=== PATIENT | male | born 1980 | race Caucasian/White ===

== ENCOUNTER 2022-09-25 03:09 | Emergency (ER) | payer OTHER, SELFPAY ==
[2022-09-25 03:10] VITALS: BP 165/98; PULSE 105; RESP 20; TEMP 37.1; O2SAT 94; BMI 38.5
--- NOTE | 2022-09-25 03:25 | EX.ED.DYSGE1 ---
HPI History of Present Illness Chief Complaint: Sore Throat Narrative Narrative: 41-year-old male here for sore throat. States this started yesterday. Notes constant, increasing pain. Endorses swelling in the right side of the neck. States symptoms are worse with swallowing. Denies any fever. Notes history of tonsillectomy. PFSH PFS Home Medications clindamycin HCl 300 mg capsule 300 mg PO TID 7 days #21 caps 09/25/22 [Rx Last Taken Unknown] Allergy/AdvReac Type Severity Reaction Status Date / Time Penicillins Allergy Anaphylaxis Verified 09/25/22 03:13 Sulfa (Sulfonamide Allergy Anaphylaxis Verified 09/25/22 03:13 Antibiotics) Surgical History (Updated 09/25/22 @ 03:14 by Toña Dudley) History of tonsillectomy and adenoidectomy Social History Smoking Status: Current every day smoker tobacco type: cigarettes ROS ROS ED ROS Narrative Constitutional: Denies fever HEENT: Endorses sore throat Neck: Denies neck pain Cardiovascular: Denies chest pain, syncope Respiratory: Denies shortness of breath GI: Denies nausea vomiting or abdominal pain : Denies changes in urinary habits Musculoskeletal: Denies muscle or joint pain Neurologic: Denies numbness weakness or loss of sensation Skin denies rash EXAM Physical Exam Narrative Exam Narrative: Nursing triage notes reviewed, Vital signs reviewed Constitutional: please see mdm HENT: MMM, mild erythema noted posterior oropharynx, tonsillectomy site without exudate. No submandibular edema, right-sided lymphadenopathy noted. Bilateral TMs pearly woods. Eyes: Pupils equal round and reactive to light, Extraocular muscles intact Neck: No stridor, no JVD, full neck ROM Lungs: Clear to auscultation, No wheezing or rales. No increased work of breathing, no conversational dyspnea, no accessory muscle use, no nasal flaring. No respiratory distress noted Heart: Regular rate and rhythm, No murmurs, No rubs and No gallops, 2+ distal pulses (radial, femoral, posterior tibial) Neuro: No focal neurological deficits, cranial nerves II through XII intact, 5/5 strength in all extremities. Intact sensation to light touch in all extremities, 2+ reflexes bilateral patella dens. Normal gait. No ataxia. Skin: No rash or lesions noted Const Vital Signs: 09/25/22 03:10 Temperature 98.7 F Temperature Source Oral Pulse Rate 105 H Respiratory Rate 20 H Blood Pressure 165/98 H Blood Pressure Mean 120 Pulse Ox 94 Oxygen Delivery Method Room Air MDM MDM MDM Narrative Medical decision making narrative: Chief Complaint: Sore throat External records reviewed: No recent ED visits or hospitalizations noted History of tonsillectomy MDM: Patient was hemodynamically stable, afebrile, nontoxic-appearing. He had good neck range of motion and no submandibular edema. There was right-sided lymphadenopathy noted. I considered the following differential diagnosis: RPA, [employer] [place], Ludewig's angina. Not consistent with RPA, [place] Ludewig's angina. Concern for lymphadenopathy and pharyngitis. Will give prophylactic antimicrobial therapy. Will instruct patient return if he develops any new or worsening symptoms specifically drooling, submental edema etc. gave clindamycin here. Feels prescriptions here in the ED via meds to beds. Factors affecting care: History of tonsillectomy Social determinants of health: Current everyday smoker History obtained from others: Shared decision making: I will have a discussion with the patient and or visitors regarding risk/benefits of further testing or admission. They will be made aware of of the risk/benefits inherent in this decision they will be given the opportunity to voice understanding. Consults: None Management Discussion w/another healthcare provider: Pharmacist Discharge Plan Triage Chief Complaint: Sore Throat ED Provider: César Perera Dx/Rx/DC Orders Clinical Impression: Pharyngitis, Lymphadenopathy Instructions: Pharyngitis or Tonsillitis Ch Prescriptions: New clindamycin HCl 300 mg capsule 300 mg PO TID 7 Days Qty: 21 0RF Primary Care Provider: Jovani Dotson Referrals: Jovani Dotson DO [Primary Care Provider] - Activity Restrictions/Additional Instructions: Thank you for trusting us with your care today! Please take antibiotics until course complete. Please return if the swelling in the right side of your neck) either throat, you are drooling you cannot swallow without antibiotics by mouth. Please take Tylenol (2 pills, 650 mg), ibuprofen (2 pills, 400 mg) every 6 hours as needed for pain and fever control. Please return to the emergency department if your symptoms change or worsen. Please follow with your primary care physician for further outpatient evaluation and management. Disposition Disposition: Home, Self Care
[2022-09-25] MEDS: Clindamycin HCl 150 MG Capsule 300 MG PO (03:53)
== END 2022-09-25 04:04 | disposition home or self-care (01) ==
LOC: ED 03:50
PROVIDERS: Emergency Provider Emergency Medicine; PCP Preventive Medicine Occupational Medicine; Visit Provider Emergency Medicine
DX: J02.9 Acute pharyngitis, unspecified (principal); F17.210 Nicotine dependence, cigarettes, uncomplicated; R59.9 Enlarged lymph nodes, unspecified
CPT/HCPCS: 99283

== ENCOUNTER 2023-01-08 10:37 | Emergency (ER) | payer OTHER, SELFPAY ==
[2023-01-08 10:38] VITALS: BP 151/103; PULSE 95; RESP 16; TEMP 36.4; O2SAT 97; BMI 39.1
--- NOTE | 2023-01-08 11:03 | CT_ITS ---
STUDY: CT ABDOMEN AND PELVIS WITHOUT CONTRAST REASON FOR EXAM: Male, 42 years old. Flank pain bilaterally RADIATION DOSAGE (If Supplied By Facility): CTDIvol = ( 23.63 ) mGy, DLP = ( 1399.27 ) mGycm TECHNIQUE: Transaxial images were obtained from the dome of the diaphragm to the symphysis pubis without oral contrast, and without intravenous contrast. Sagittal and coronal images were reconstructed. Individualized dose optimization techniques were used for this CT. COMPARISON: None. FINDINGS: Minimal bilateral basilar atelectasis. Mild coronary artery calcification. There is decreased attenuation of the liver consistent with steatosis. Normal gallbladder and extrahepatic biliary system. Normal spleen. Normal pancreas. Normal bilateral adrenal glands. Normal right kidney. Normal left kidney. Normal visualized stomach. Normal small intestine. There are scattered colonic diverticula consistent with diverticulosis. The appendix is visualized and appears normal. There is scattered atherosclerotic calcification of the abdominal aorta, without a demonstrated aneurysm. Normal inferior vena cava. Normal retroperitoneum. Normal urinary bladder. Central prostatic calcification. There is a left-sided inguinal hernia containing adipose tissue. There are degenerative changes of the visualized lumbar spine. CT/Abdomen/Pelvis without Cont IMPRESSION: Scattered sigmoid diverticulosis. Fatty infiltration of the liver. Electronically Signed: Brooks Bradley MD at 12:27 EDT ,
--- NOTE | 2023-01-08 11:05 | EDS_ITS ---
HPI <DANI Huddleston - Last Filed: 01/08/23 15:45> History of Present Illness Chief Complaint: Back Narrative Narrative: Patient presenting today with bilateral flank pain that he has had intermittently since 12/09/2022. He feels that today the pain worsened while he was at work this morning. The right-sided flank pain does radiate into the right groin. Nothing seems to worsen the pain and ibuprofen does seem to make it somewhat better. He saw a provider that was not his PCP shortly after the pain started and they obtained blood work as well as a UA and placed patient on Levaquin but he is unsure why they did that as they told him he did not have a UTI. Patient also reports intermittent bilateral testicular pain that is worse on the right side that he has had since his vasectomy in 2018. However, since December 09 the pain has worsened. He denies any fever, chills, abdominal pain, nausea, vomiting, urinary symptoms. Patient reports he has been having normal bowel movements. He denies any bowel/bladder incontinence, saddle paresthesia. PFSH <DANI Huddleston - Last Filed: 01/08/23 15:45> [facility] Medical History Hyperlipidemia Home Medications clindamycin HCl 300 mg capsule 300 mg PO TID 7 days #21 caps 09/25/22 [Rx Last Taken Unknown] doxycycline hyclate 100 mg tablet 100 mg PO BID #14 tabs 01/08/23 [Rx Last Taken Unknown] hydrocodone-acetaminophen 5-325mg 5mg-325mg 1 tab PO Q4H PRN PRN Pain 3 days #10 TABLETS 01/08/23 [Rx Last Taken Unknown] Allergy/AdvReac Type Severity Reaction Status Date / Time Penicillins Allergy Anaphylaxis Verified 01/08/23 10:38 Sulfa (Sulfonamide Allergy Anaphylaxis Verified 01/08/23 10:38 Antibiotics) Surgical History H/O: vasectomy History of tonsillectomy and adenoidectomy Social History Smoking Status: Current every day smoker tobacco type: cigarettes ROS <DANI Huddleston - Last Filed: 01/08/23 15:45> ROS ED Constitutional Constitutional ED: Denies chills or fever(s) Cardiovascular Cardiovascular: Denies chest pain or palpitations Respiratory/Chest Respiratory/Chest: Denies cough or dyspnea Gastrointestinal Gastrointestinal: Denies abdominal pain, constipation, diarrhea, nausea or vomiting Genitourinary Genitourinary ED: Denies dysuria, hematuria or urinary urgency Musculoskeletal Musculoskeletal: Reports back pain; Denies arthralgias or myalgias Integumentary Denies abscess, Abrasions or rash Neurologic Neurologic: Denies weakness Psychiatric Psychiatric: Denies anxiety or depression EXAM <DANI Huddleston - Last Filed: 01/08/23 15:45> Physical Exam Const Vital Signs: 01/08/23 12:38 01/08/23 14:00 Pulse Rate 80 77 Respiratory Rate 16 17 Blood Pressure 136/86 H 143/90 H Blood Pressure Mean 102 107 Pulse Ox 100 98 Oxygen Delivery Method Room Air Room Air Positive well nourished, well developed and no apparent distress General Appearance ED: well developed HEENT Reports normocephalic and head/scalp atraumatic Mouth ED: Yes moist mucous membranes normal Eyes PERRL and EOMs intact bilaterally Neck full ROM and supple Chest Wall inspection of chest normal Resp normal respiratory effort and clear to auscultation bilaterally Cardio regular rate and regular rhythm GI soft to palpation, non-tender, non-distended and no masses Narrative: Normal appearance to the scrotum without any swelling or erythema, mild right testicular pain to palpation Back/Spine normal ROM, normal to inspection and no thoracic nor lumbar tenderness General Back: CVA tenderness bilateral Thoracic Spine / Upper Back: normal to inspection and thoracic ROM normal; Negative for paraspinal muscle tenderness Lumbar Spine / Lower Back: normal to inspection and lumbar ROM normal; Negative for paraspinal muscle tenderness Extremity normal to inspection and full ROM Neuro oriented x3, CN's II-XII intact bilaterally, moves all extremities, no focal motor deficits and no sensory deficits noted Sensorium / Orientation: awake and alert Motor Exam: strength 5/5 throughout Psych mental status grossly normal and thought process normal Skin no rashes or lesions noted and no wounds <Dr. Yohana Fischer DO - Last Filed: 01/09/23 11:01> Physical Exam Const Vital Signs: 01/08/23 12:38 01/08/23 14:00 Pulse Rate 80 77 Respiratory Rate 16 17 Blood Pressure 136/86 H 143/90 H Blood Pressure Mean 102 107 Pulse Ox 100 98 Oxygen Delivery Method Room Air Room Air [facility] <DANI Huddleston - Last Filed: 01/08/23 15:45> [facility] Narrative Medical decision making narrative: Patient presenting today due to bilateral flank pain that he has had intermittently since 12/09 and testicular pain that is worse on the right side that he has had since having his vasectomy in 2019 that has acutely worsened since 12/09. He reports that today the pain was at its worst and the flank pain is worse on the right side and does radiate into the right testicle. He does appear uncomfortable, he will be given Toradol and morphine here for pain. Labs to be obtained to rule out leukocytosis, anemia, electrolyte abnormality, UTI, KETURAH. CT of the abdomen and pelvis will be obtained to rule out intra-abdominal etiology. EKG was added on as patient and his expressed concerns because patient has been sweating a lot more lately and his brother had a heart attack in his 40s. He is not having any chest pain or shortness of breath currently. CT is unremarkable for any acute findings, testicular ultrasound will be obtained. This shows a moderate-sized right hydrocele with increased vascula rity to the right epididymis. He will be given a referral for Dr. Arguelles, will be started on antibiotics, and will be given pain control. He will be discharged home in stable condition and is comfortable with plan. Lab Data Attestation: I reviewed the patient's lab results. Labs: Laboratory Results - last 24 hr 01/08/23 01/08/23 11:25 11:47 WBC 7.6 RBC 5.48 Hgb 16.6 H Hct 47.6 MCV 86.9 MCH 30.3 MCHC 34.9 RDW Std Deviation 42.6 RDW Coeff of Silverio 13.4 Plt Count 241 MPV 9.5 Immature Gran % (Auto) 0.400 Neut % (Auto) 53.3 Lymph % (Auto) 34.6 [place] % (Auto) 8.2 Eos % (Auto) 2.2 Baso % (Auto) 1.3 H Absolute Neuts (auto) 4.0 Absolute Lymphs (auto) 2.62 Nucleated RBC % 0 Sodium 138 Potassium 4.0 Chloride 106 Carbon Dioxide 26.0 Anion Gap 6 BUN 16 Creatinine 0.95 Estim Creat Clear Calc 123.09 Est GFR (MDRD) Af Amer 112 Est GFR (MDRD) Non-Af 92 BUN/Creatinine Ratio 16.9 Glucose 93 Calcium 9.3 Total Creatine Kinase 279 Urine Color Yellow Urine Clarity Clear Urine pH 6.0 Ur Specific [place] 1.020 Urine Protein 30 H Urine Glucose (UA) Normal Urine Ketones Negative Urine Occult Blood Negative Urine Nitrite Negative Urine Bilirubin Negative Urine Urobilinogen Normal Ur Leukocyte Esterase Negative Urine RBC 0 SEEN Urine WBC 0 SEEN Ur Squamous Epith Cells 0-5 SEEN Urine Bacteria 0 SEEN Urine Mucus 0 SEEN Radiography Diagnostic Testing: Clinical Impression(s) from Imaging Studies Abdomen/Pelvis CT 01/08/23 11:03 IMPRESSION: Scattered sigmoid diverticulosis. Fatty infiltration of the liver. Electronically Signed: Brooks Bradley MD at 12:27 EDT , Testicular Ultrasound 01/08/23 12:34 IMPRESSION: Increase vascularity to the right epididymis. Moderate sized right hydrocele Electronically Signed: Brooks Bradley MD at 13:36 EDT , EKG Initial EKG: Comments: 76 bpm, sinus rhythm with first-degree AV block, no ST elevation, reviewed and interpreted by attending ED physician <Dr. Yohana Fischer, DO - Last Filed: 01/09/23 11:01> [facility] Narrative Medical decision making narrative: Patient presenting today due to bilateral flank pain that he has had intermittently since 12/09 and testicular pain that is worse on the right side that he has had since having his vasectomy in 2019 that has acutely worsened since 12/09. He reports that today the pain was at its worst and the flank pain is worse on the right side and does radiate into the right testicle. He does appear uncomfortable, he will be given Toradol and morphine here for pain. Labs to be obtained to rule out leukocytosis, anemia, electrolyte abnormality, UTI, KETURAH. CT of the abdomen and pelvis will be obtained to rule out intra-abdominal etiology. EKG was added on as patient and his expressed concerns because patient has been sweating a lot more lately and his brother had a heart attack in his 40s. He is not having any chest pain or shortness of breath currently. CT is unremarkable for any acute findings, testicular ultrasound will be obtained. This shows a moderate-sized right hydrocele with increased vascularity to the right epididymis. He will be given a referral for Dr. Arguelles, will be started on antibiotics, and will be given pain control. He will be discharged home in stable condition and is comfortable with plan. I have personally performed a face to face assessment of the patient and have reviewed the HARDEEP Note. I performed a substantive portion of the visit including all aspects of the following. My vera findings include: History is patient is a 42-year-old male presenting with recurrent testicular pain, right greater than left as well as bilateral flank pain. He has previously been treated for what sounds like epididymitis or maybe prostatitis with a course of Levaquin. States he felt he got better but then his symptoms returned. For the past month he has been having these ongoing intermittent symptoms. He has a follow-up appointment with his primary care provider next week. Has had recent blood work. Patient states the first any blood work his white blood cell count was elevated. Physical exam is not consistent with torsion. The time to be atypical for kidney stone however patient does seem quite uncomfortable. He is initially given Toradol as he declines opioid pain medication. Patient continues to have pain and is eventually agreeable to a dose of IV morphine. CT flank study as well as labs including a CBC, CMP and urinalysis are largely unremarkable. 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 This is normal. Patient has equal distal pulses and given his symptoms and on for a month of low suspicion for dissection or aneurysm of the aorta as a cause of his symptoms. Decision was made to obtain a testicular ultrasound which does show on increased vasculature and hydrocele. Patient will be empirically treated for epididymitis given his pain with doxycycline as he does have history of anaphylaxis to Bactrim as well as penicillins I do not want to use Keflex and he is already been on a course of Levaquin. He is given referral to urology. Discharged home in stable improved condition. Is given a short course of pain medication as well for symptom control. Other additions or changes: [None] Lab Data Labs: Laboratory Results - last 24 hr 01/08/23 01/08/23 11:25 11:47 WBC 7.6 RBC 5.48 Hgb 16.6 H Hct 47.6 MCV 86.9 MCH 30.3 MCHC 34.9 RDW Std Deviation 42.6 RDW Coeff of Silverio 13.4 Plt Count 241 MPV 9.5 Immature Gran % (Auto) 0.400 Neut % (Auto) 53.3 Lymph % (Auto) 34.6 [place] % (Auto) 8.2 Eos % (Auto) 2.2 Baso % (Auto) 1.3 H Absolute Neuts (auto) 4.0 Absolute Lymphs (auto) 2.62 Nucleated RBC % 0 Sodium 138 Potassium 4.0 Chloride 106 Carbon Dioxide 26.0 Anion Gap 6 BUN 16 Creatinine 0.95 Estim Creat Clear Calc 123.09 Est GFR (MDRD) Af Amer 112 Est GFR (MDRD) Non-Af 92 BUN/Creatinine Ratio 16.9 Glucose 93 Calcium 9.3 Total Creatine Kinase 279 Urine Color Yellow Urine Clarity Clear Urine pH 6.0 Ur Specific [place] 1.020 Urine Protein 30 H Urine Glucose (UA) Normal Urine Ketones Negative Urine Occult Blood Negative Urine Nitrite Negative Urine Bilirubin Negative Urine Urobilinogen Normal Ur Leukocyte Esterase Negative Urine RBC 0 SEEN Urine WBC 0 SEEN Ur Squamous Epith Cells 0-5 SEEN Urine Bacteria 0 SEEN Urine Mucus 0 SEEN Radiography Diagnostic Testing: Clinical Impression(s) from Imaging Studies Abdomen/Pelvis CT 01/08/23 11:03 IMPRESSION: Scattered sigmoid diverticulosis. Fatty infiltration of the liver. Electronically Signed: Brooks Bradley MD at 12:27 EDT , Testicular Ultrasound 01/08/23 12:34 IMPRESSION: Increase vascularity to the right epididymis. Moderate sized right hydrocele Electronically Signed: Brooks Bradley MD at 13:36 EDT , Discharge Plan Triage Chief Complaint: Back ED Midlevel Provider: Millicent Porter ED Provider: Yohana Fischer Dx/Rx/DC Orders Clinical Impression: Bilateral flank pain, Hydrocele, right, Testicular pain, right Instructions: ED Flank Pain, Uncertain Cause, ED Hydrocele, Type Not Specified, ED Testicular Pain, Unclear Cause Prescriptions: New doxycycline hyclate 100 mg tablet 100 mg PO BID Qty: 14 0RF hydrocodone-acetaminophen 5-325 mg tablet 1 tab PO Q4H PRN PRN (Reason: Pain) 3 Days Qty: 10 0RF No Action clindamycin HCl 300 mg capsule 300 mg PO TID 7 Days Qty: 21 0RF Primary Care Provider: Jovani Dotson Referrals: Gomez Arguelles MD [Med Staff - Active Staff] - 5-7 Days Jovani Dotson DO [Primary Care Provider] - Activity Restrictions/Additional Instructions: Please follow-up with urology and return for any worsening of your symptoms. Disposition Disposition: Home, Self Care Discharge Date/Time: 01/08/23 15:06
[2023-01-08] MEDS: Ketorolac 15 MG/ML Vial IV (11:19)
[2023-01-08 11:35] LABS: Absolute Lymphocyte Count 2.62 X10^3/uL (0.83-4.51); Basophil% 1.3 % (0-1); Eosinophil# 0.17 X10^3/uL; Eosinophils% 2.2 % (0-5); Hematocrit 47.6 % (40-54); Hemoglobin 16.6 g/dL (13.0-16.5); Lymphocyte # 2.62 X10^3/ul (0.83-4.51); Lymphocyte % 34.6 % (19-41); Mean Corp Hgb Conc 34.9 g/dL (32-36); Mean Corpuscular Hgb 30.3 pg (27.0-32.0); Mean Corpuscular Volume 86.9 fL (80-94); Mean Platelet Vol. 9.5 fl (6.2-12.0); Monocyte# 0.62 X10^3/uL; Monocyte% 8.2 % (0-10); NRBC Flagged by Analyzer 0 % (0-5); Neutrophil # 4.03 X10^3/uL (2.7-7.7); Neutrophil % 53.3 % (47-70); Platelet Count 241 K/mm3 (150-450); RBC Distribution Width CV 13.4 % (11.6-14.6); RBC Distribution Width SD 42.6 fl (35.1-43.9); Red Blood Count 5.48 M/mm3 (4.6-6.2); White Blood Count 7.6 K/mm3 (4.4-11.0)
[2023-01-08 11:46] LABS: Anion Gap 6 (5-15); BUN 16 mg/dL (7-18); BUN/Creat Ratio 16.9 RATIO (10-20); Calcium,Total 9.3 mg/dL (8.5-10.1); Chloride 106 mmol/L (98-107); Creatinine, Serum 0.95 mg/dL (0.70-1.30); EST Glomerular Filtration Rate 92 mL/min (>60); Est Glom Filt Rate - Afr Amer 112 mL/min (>60); Estimated Creatinine Clearance 123.09 ml/min; Glucose 93 mg/dL (74-106); Sodium Level 138 mmol/L (136-145)
[2023-01-08 11:49] LABS: Bacteria 0 SEEN /hpf (None Seen); Mucous, Urine 0 SEEN /hpf (<or=2+); Red Blood Cells-Urine 0 SEEN /hpf (0-5); White Blood Cells 0 SEEN /hpf (0-5)
[2023-01-08 11:52] LABS: Color, Urine Yellow (Yellow); Glucose, Dipstick Normal (Normal); Ketone-Dipstick Negative (Negative); Leukocyte Esterase-Dipstick Negative /ul (Negative); Nitrite-Dipstick Negative (Negative); Occult Blood-Urine Negative /ul (Negative); Protein-Dipstick 30 mg/dl (Negative); Urine Bilirubin Dipstick Negative (Negative); Urine Clarity Clear (Clear); Urine Urobilinogen Normal (Normal)
[2023-01-08 12:00] LABS: Squamous Epithelial Cells - UA 0-5 SEEN /hpf (0-5)
--- NOTE | 2023-01-08 12:00 | EKG12_ITS ---
Test Reason : WEAKNESS Blood Pressure : / mmHG Vent. Rate : 076 BPM Atrial Rate : 076 BPM P-R Int : 212 ms QRS Dur : 090 ms QT Int : 380 ms P-R-T Axes : 066 042 047 degrees QTc Int : 427 ms Sinus rhythm with 1st degree A-V block Otherwise normal ECG Confirmed by ITALO GUNN, OMID ([id number]), fashion editor JACKIE SELLERS ([id number]) on 01/09/2023 9:57:33 AM Referred By: KAITLIN Confirmed By:OMID PUCKETT MD
[2023-01-08] MEDS: 0.9% Normal Saline 1,000 ML 999 ML IV (12:04)
[2023-01-08 12:29] LABS: CPK Total, Creatine Kinase 279 U/L (39-308)
[2023-01-08] MEDS: Ondansetron 4 MG/2 ML Vial IV (12:34)
[2023-01-08] MEDS: Morphine 4 MG/ML Syringe IV (12:34)
--- NOTE | 2023-01-08 12:34 | US_ITS ---
STUDY: SCROTUM ULTRASOUND REASON FOR EXAM: Male, 42 years old. R testicular pain TECHNIQUE: Ultrasound evaluation of the scrotum was performed with color Doppler and static woods-scale imaging. COMPARISON: None. FINDINGS: RIGHT TESTICLE INTRATESTICULAR: There is a normal size of the right testicle. The right testicle measures 4.1 cm x 3.2 cm x 1.9 cm. There is a homogenous echotexture. There is normal arterial and normal venous vascularity. There is no demonstrated right testicular mass or cyst. EXTRATESTICULAR: The epididymis is normal in size. The epididymis head measures 1 cm x 1.4 cm x 1.1 cm. There is increased (hyperemic) vascularity of the epididymis. There is no demonstrated epididymal cystic structure. There is a moderate size hydrocele. There is no demonstrated varicocele. There is no demonstrated extratesticular mass or cyst. LEFT TESTICLE INTRATESTICULAR: There is a normal size of the left testicle. The left testicle measures 4.5 cm x 3 cm x 2.3 cm. There is a homogenous echotexture. There is normal arterial and normal venous vascularity. There is no demonstrated left testicular mass or cyst. EXTRATESTICULAR: The epididymis is normal in size. The epididymis head measures 1.5 cm x 1.2 cm x 0.5 cm. There is normal vascularity of the epididymis. There is no demonstrated epididymal cystic structure. There is no demonstrated hydrocele. There is no demonstrated varicocele. There is no demonstrated extratesticular mass or cyst. US/Testicular with Arterial Flow IMPRESSION: Increase vascularity to the right epididymis. Moderate sized right hydrocele Electronically Signed: Brooks Bradley MD at 13:36 EDT ,
[2023-01-08 12:38] VITALS: BP 136/86; PULSE 80; RESP 16; O2SAT 100
[2023-01-08 14:00] VITALS: BP 143/90; PULSE 77; RESP 17; O2SAT 98
== END 2023-01-08 15:06 | disposition home or self-care (01) ==
PROVIDERS: Physician Assistant; Emergency Provider Emergency Medicine; PCP Preventive Medicine Occupational Medicine; Visit Provider Emergency Medicine
DX: R10.9 Unspecified abdominal pain (principal); E78.5 Hyperlipidemia, unspecified; N43.3 Hydrocele, unspecified; F17.210 Nicotine dependence, cigarettes, uncomplicated; N50.811 Right testicular pain; Z98.52 Vasectomy status
CPT/HCPCS: 74176; 76870; 80048; 81001; 82550; 85025; 93005; 93976; 96361; 96374; 96375; 99285; J7030; A4216; J2405